=== PATIENT | male | born 1945 | race Caucasian/White ===

== ENCOUNTER 2022-01-20 12:27 | Emergency (ER) | payer MEDICARE, BC, SELFPAY ==
--- NOTE | ~2022-01-20 | CT_ITS ---
EXAMINATION: CT cervical spine wo con DATE: 01/20/2022 12:55 INDICATION: Fall. Head and neck injury. TECHNIQUE: Computed tomography (CT) of the cervical spine was performed without intravenous contrast. Automated exposure control and iterative reconstruction technique were employed. Exam dose: 463.18 mGy-cm total exam DLP. COMPARISON: 03/11/2019 CT cervical spine FINDINGS: C1 and C2 are normally aligned and the odontoid process is intact. Moderate degenerative disc disease at C2-3. Severe degenerative disc disease and slight retrolisthesis at C3-4. Status post anterior cervical spine surgical fusion at C4-C7. Severe degenerative disc disease at C7-T1 No fracture or dislocation or locked facet or prevertebral soft tissue swelling. IMPRESSION: No fracture or dislocation or locked facet Status post anterior cervical spine surgical fusion at C4-C7 Severe degenerative disc disease at the interspaces above and below the fusion at C3-4 and CC 71 Reviewed, dictated and finalized at [facility]. Reviewed, dictated and finalized at [facility].
--- NOTE | ~2022-01-20 | CT_ITS ---
EXAMINATION: CT brain wo con DATE: 01/20/2022 12:55 INDICATION: Head injury from fall TECHNIQUE: Computed tomography (CT) of the head was performed without intravenous contrast. The mA wa s adjusted according to patient size. Iterative reconstruction technique was employed. Exam dose: 60 5.33 mGy-cm total exam DLP. COMPARISON: 03/11/2019 CT brain FINDINGS: Bilateral vertebral artery and carotid siphon and supraclinoid internal carotid artery calc ifications. There is nonspecific diminished attenuation of the cerebral white matter, likely due to chronic small vessel ischemic changes. 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 No intracranial mass lesion or hemorrhage or cerebrovascular accident, midline shift or mass effect or subdural or epidural hematoma is noted oth erwise. No fracture or bone destruction of the cranial vault. Included paranasal sinuses and mastoid air cell s are normally developed and aerated. IMPRESSION: Cerebral atherosclerosis and chronic small vessel ischemic changes of the cerebral white matter Small chronic right cerebellar hemispheric infarct Reviewed, dictated and finalized at [facility]. Reviewed, dictated and finalized at [facility].
[2022-01-20 12:29] VITALS: BP 171/88; PULSE 62; RESP 15; TEMP 36.4; O2SAT 100
--- NOTE | 2022-01-20 12:50 | ED.WOUNDLAC ---
HPI - Wound/Laceration General Chief Complaint: Wound/Laceration Stated Complaint: fall, head injury Time Seen by Provider: 01/20/22 12:33 History of Present Illness HPI narrative: 76-year-old male presents the emergency room for evaluation of a head injury sustained from a mechanical fall from ground-level. Patient states that he tripped and fell landed backwards struck his head on the side of a counter. Bleeding was controlled at the time of the injury. Patient is on blood thinners. Denies any LOC or altered mental status. Denies visual hearing changes. Denies headache Related Data Home Medications Medication Instructions Recorded Confirmed aspirin 81 mg tablet,delayed 81 mg PO DAILY 07/13/19 07/07/21 release (Aspir-Low) cholestyramine (with sugar) 4 gram 4 gm PO DAILY 07/13/19 07/07/21 oral powder dabigatran etexilate 150 mg 150 mg PO BID 07/13/19 07/07/21 capsule (Pradaxa) diphenhydramine HCl 25 mg capsule 25 mg PO QHS PRN Insomnia 07/13/19 07/07/21 (Benadryl) docusate sodium 100 mg capsule 100 mg PO HS 07/13/19 07/07/21 finasteride 5 mg tablet 5 mg PO QPM 07/13/19 07/07/21 insulin glargine 100 unit/mL (3 55 unit subcut DAILY 07/13/19 07/07/21 mL) subcutaneous pen (Lantus Solostar U-100 Insulin) omega-3 fatty acids 1,000 mg 1,000 mg PO DAILY 07/13/19 07/07/21 capsule (Fish Oil Concentrate) atorvastatin 40 mg tablet 20 mg PO DAILY 07/16/19 07/07/21 cholecalciferol (vitamin D3) 50 2,000 unit PO DAILY 07/16/19 07/07/21 mcg (2,000 unit) capsule duloxetine 30 mg capsule,delayed 30 mg PO BID 07/16/19 07/07/21 release levothyroxine 175 mcg tablet 150 mcg PO DAILY 07/16/19 07/07/21 (Synthroid) losartan 25 mg tablet 25 mg PO DAILY 07/16/19 07/07/21 carboxymethylcellulose sodium 0.5 1 drp EACH EYE BID 09/15/20 07/07/21 % eye drops (Refresh Tears) alogliptin 6.25 mg tablet 6.25 mg PO QPM 01/20/22 empagliflozin 25 mg tablet 25 mg PO DAILY 01/20/22 Allergies Allergy/AdvReac Type Severity Reaction Status Date / Time lisinopril Allergy Mild Unknown Verified 01/20/22 12:36 milk Allergy Unknown Unknown Verified 01/20/22 12:36 some type of prostate med Allergy Severe itching,swelling Uncoded 07/07/21 09:40 NOT finasteride in mouth Review of Systems Review of Systems: CONSTITUTIONAL: Denies fever, chills, or sweats. EYES: Denies visual changes, redness, or discharge. ENT: Denies rhinorrhea, congestion, sore throat, or otalgia. CARDIOVASCULAR: Denies chest pain, palpitations, or edema. RESPIRATORY: Denies cough or dyspnea. GASTROINTESTINAL: Denies abdominal pain, nausea, vomiting, or diarrhea. GENITOURINARY: Denies dysuria or hematuria. SKIN: Reports laceration to scalp MUSCULOSKELETAL: Denies back pain, joint pain, or myalgia. NEUROLOGIC: Denies headache, numbness, dizziness, or weakness. PSYCHIATRIC: Denies anxiety or depression. PMFSH Past Medical History Medical History ASHD (arteriosclerotic heart disease) Chronic anticoagulation Essential hypertension Insulin dependent diabetes mellitus Obesity, unspecified Surgical History Surgical History History of laparoscopic cholecystectomy Family History Family History Father Family history of cardiovascular disease Cerebrovascular accident Mother Family history of dementia Sibling Family history of malignant neoplasm of thyroid, Onset Age: 68 Other Diabetes mellitus Family history of malignant neoplasm Hypertension Social History Social History Smoking status: Never smoker Alcohol intake: current Exam Narrative: GENERAL: Well-appearing, well-nourished, no physical limitations, and in no acute distress. HEAD: Normocephalic, laceration to occipital scalp EYES: Conjunctivae normal, PERRL
[2022-01-20] MEDS: TETANUS,DIPHTHERIA,AC PERTUSSIS ADULT (0.5 ML) BOOSTRIX IM (14:01)
== END 2022-01-20 13:55 | disposition home or self-care (01) ==
PROVIDERS: Emergency Provider Nurse Practitioner Family
DX: S01.01XA Laceration without foreign body of scalp, initial encounter (principal); I10 Essential (primary) hypertension; I25.10 Atherosclerotic heart disease of native coronary artery without angina pectoris; E11.9 Type 2 diabetes mellitus without complications; Z79.4 Long term (current) use of insulin; Z79.01 Long term (current) use of anticoagulants; Z23 Encounter for immunization; W01.198A Fall on same level from slipping, tripping and stumbling with subsequent striking against other object, initial encounter
CPT/HCPCS: 12001; 70450; 72125; 90471; 90715; 99284

== ENCOUNTER 2024-11-27 08:36 | Outpatient (CLI) | payer MEDICARE, SELFPAY ==
--- OUTSIDE RECORDS SUMMARY | 2024-11-27 08:41 | XMS_ITS | Clinical Summary ---
Author Organization [facility] [address] [facility] [address] Address [address] [place] [address] Care Team Providers Care Substation Inspector Name Role Phone Denise Segura NP Primary Care Provider [phone]- [phone] Allergies Active Allergy Reactions Criticality Noted Date Comments Blueberry Unknown Lisinopril Medium Milk Itching Low Terazosin Headache Low 05/08/2008 Medications dabigatran (PRADAXA) 150 mg capsule take 1 capsule (150MG) by oral route 2 times every day 180 3 2 Active cholecalciferol (VITAMIN D-3) 2,000 unit capsule take 1 by oral route every day 0 2 Active omega-3 fatty acids-fish oil (OMEGA 3 FISH OIL) 684-1,200 mg capsule,delayed release(DR/EC) take 1 by Oral route 2 times every day 0 2 Active aspirin (ASPIRIN LOW DOSE) 81 mg tablet take 1 Tablet (81MG) by oral route every day 0 2 Active docusate sodium (COLACE) 100 mg capsule take 1 capsule (100MG) by oral route every day at bedtime as needed 0 3 Active finasteride (PROSCAR) 5 mg tablet take 1 tablet (5MG) by oral route every day 0 3 Active levothyroxine (SYNTHROID, LEVOTHROID) 175 mcg tablet take 1 tablet by oral route every day 0 0 6 Active Additional Information Patient taking differently: 200 mcg, Reported on 11/13/2024 insulin glargine (LANTUS) 100 unit/mL (3 mL) insulin pen Inject 55 Units under the skin daily Active atorvastatin (LIPITOR) 40 mg tablet Take 0.5 tablets (20 mg total) by mouth daily. 0 8 Active cholestyramine- aspartame (cholestyramine light) 4 gram powder in packet Take 1 packet by mouth daily. 0 8 Active alogliptin 12.5 mg tablet Take 1 tablet by mouth daily. Active DULoxetine DR (CYMBALTA) 30 mg capsule Take 1 capsule (30 mg total) by mouth 2 (two) times a day Active acetaminophen ER (TYLENOL) 650 mg 8 hr tablet Take 500 mg by mouth as needed Active diphenhydrAMINE (BENADRYL) 25 mg capsule Take 1 tablet/capsule (25 mg total) by mouth as needed Active L gasseri/B bifidum/B longum ([facility] [employer] [facility] ORAL) Take by mouth Active vit C/E/Zn/coppr/kem tein/zeaxan (PRESERVISION AREDS-2 ORAL) Take by mouth Ac tive carboxymethylce llulose (REFRESH LIQUIGEL) 1 % ophthalmic liquid gel drops Administer 1 drop into both eyes as needed Active simethicone (MYLICON) 80 mg chewable tablet Take 2 tablets (160 mg total) by mouth as needed Active losartan (COZAAR) 50 mg tablet Take 1 tablet (50 mg total) by mouth daily 90 tablet 3 4 Active amLODIPine (NORVASC) 10 mg tablet Take 1 tablet (10 mg total) by mouth daily 4 Active GLIPIZIDE ORAL Take 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 4 Active INSULIN ASPART U-100 SUBQ Inject 55 Units under the skin Active semaglutide (OZEMPIC) 1 mg/dose (4 mg/3 mL) pen injector injection Inject under the skin 5 Active fish oil-dha-epa 1,200-144-216 mg capsule Take by mouth Activ e acidophilus-pec tin, citrus 100 million cell-10 mg capsule Take by mouth Activ e metFORMIN XR (GLUCOPHAGE XR) 500 mg 24 hr tablet Take 2 tablets (1,000 mg total) by mouth 5 Active Active Problems Problem Noted Date Diagnosed Date Severe obesity 11/13/2024 Chronic atrial fibrillation 03/22/2017 Coronary artery disease invo [place]ving [place] coronary artery of [place] heart without angina pectoris 03/22/2017 S/P CABG (coronary artery bypass graft) 03/22/20 17 Encounters Date Type Department Care Team Description 11/13/2024 10:00 AM CDT Office Visit [facility] Cardiology [address] [place] [address] Lamont Luna MD Coronary artery disease involving [place] coronary artery of [place] heart without angina pectoris (Primary Dx); S/P CABG (coronary artery bypass graft); Chronic atrial fibrillation (HCC); Severe obesity (HCC) from Last 3 Months Medical History Medical History Date Comments Hx Other Medical Diabetes Type I I Hypertension Hypertension Hypothyroidism Hypothyroidism Family History Medical History Relation Name Comments Cardiomyopathy Father 2 Cardiomyopath y; Relation Name Status Comments Father 1 Alive Father 2 Social History Tobacco Use Types Packs/Day Years Used Date Smoking Tobacco: Never Smokeless Tobacco: Never Tobacco Cessation:Counseling Given: Not Answered Alcohol Use Standard Drinks/Week Comments Yes 1 (1 standard drink = 0.6 oz pur e alcohol) Sex and Gender Information Value Date Recorded Sex Assigned at Not on file 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 Gender Identity Not on file Sexual Orientation Not on file Obstetrics History Last Filed Vital Signs Vital Sign Reading Time Taken Comments Blood Pressure 130/52 11/13/2024 10:07 AM CDT Pulse 70 11/13/2024 10:07 AM CDT Temperature - - Respiratory Rate 12 01/17/2020 10:3 7 AM CDT Oxygen Saturation 91% 11/13/2024 10: 07 AM CDT Inhaled Oxygen Concentration - - Weight 125.9 kg (277 lb 9.6 oz) 025 10:07 AM CDT Height 185.4 cm (6' 1 ) 11/13/2024 10:0 7 AM CDT Body Mass Index 36.62 11/13/2024 10:07 AM CDT Plan of Treatment Health Maintenance Due Date Last Done Comments Depression Screening 1944 Fall Risk Assessment 1945 Hepatitis B Screening 1962 Well Visit 65+ 2009 DTaP/Tdap/Td Vaccine (5 - Td or Tdap) 01/21/2032 01/20/2022, 03/11/2019, 11/20/2013, Additional history exists Pneumococcal vaccine 65+ Completed 015, 11/24/2013, 02/20/2004 Zoster Vaccine Completed 08/20/2019, 01/17, 02/04/2009 Influenza Vaccine Completed 03/28/2024, , 04/17/2021, Additional history exists Insurance [facility] MEDICARE ADVANTAGE Care Teams Substation Inspector Relationship Specialty Start Date End Date Denise Segura NP [address] [place] [id number] PCP - General Nurse Practitioner 05/10/24
--- OUTSIDE RECORDS SUMMARY | 2024-11-27 08:41 | XMS_ITS | Referral Summary ---
Author Organization [facility] [address] [address] Address [address] [facility] [address] [place] [address] Care Team Providers Care Work Environment Safety Inspector Name Role Phone Denise Segura NP Primary Care Provider +1- [phone] Encounters Date Type Department Care Team Description 11/13/2024 10:00 AM CDT Office Visit [facility] Cardiology [address] [facility] [address] [place] [address] Lamont Luna MD Coronary artery disease involving [place] coronary artery of [place] heart without angina pectoris (Primary Dx); S/P CABG (coronary artery bypass graft); Chronic atrial fibrillation (HCC); Severe obesity (HCC) from Last 3 Months Allergies Active Allergy Reactions Criticality Noted Date [...] as needed Active L gasseri/B bifidum/B longum ([facility] ORAL) Take by mouth Active vit [...] GLIPIZIDE ORAL Take 10 mg by mouth lumber tripper before breakfast 4 Active INSULIN ASPART U-100 [...] fibrillation 03/22/2017 Coronary artery disease invo lving [place] coronary artery of [place] heart without angina pectoris 03/22/2017 S/P CABG (coronary artery bypass graft) 03/22/20 17 Social History Tobacco Use Types Packs/Day Years Used Date Smoking Tobacco: Never Smokeless Tobacco: Never Tobacco Cessation:Counseling Given: Not Answered Alcohol Use Standard Drinks/Week Comments Yes 1 (1 standard drink = 0.6 oz pur e alcohol) Sex and Gender Information Value Date Recorded Sex Assigned at Not on file 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
--- OUTSIDE RECORDS SUMMARY | 2024-11-27 08:41 | XMS_ITS | CONTINUITY OF CARE DOCUMENT ---
Author Name edgardo reynoso Address Unknown Organization [facility] Address [address] [place] [address] [address] [place] [address] Phone [phone] Care Team Providers Care Automatic Operator Name Role Phone edgardo reynoso Unavailable Unavailable INSURANCE PROVIDERS Payer name Policy type / Coverage type Advance red alliance party ID [employer] Other [id number]
--- NOTE | 2024-12-07 22:11 | P.SLEEP_ITS ---
Sleep Study Date of Study: 11/27/24 Ordering Provider: ADRIANNE Montano Interpreting Physician: aKti Vásquez MD Sleep Study Type: CPAP Titration Height: 1.85 m Weight: 120.202 kg Body Mass Index: 34.9 Neck Circumference (inches): 18 [place]: 10 Reason for Sleep Study Known obstructive sleep apnea, increased AHI with more central events; he presents for a new titration to see if his needs have changed. Sleep History Gregg Bhatti is an 79-year-old man with obstructive sleep apnea on CPAP for over 25 years. His current pressure CPAP 16 with 1 cm of EPR. His most recent apnea-hypopnea index on his compliance download was 47, this is significantly elevated, ideally AHI should be between 0 and 5, or up to 10 if the condition being treated is central sleep apnea. He rarely awakens from sleep feeling short of breath. He never wakes at night with heartburn, belching or coughing.??Does not mention whether or not he snores. He rarely has trouble sleeping when he has a cold. He never wakes up gasping for breath during the night. He occasionally has breathing problems at night. He never sweats excessively at night. He never notices his heart pounding or beating irregularly during the night. He frequently falls asleep during the day. He occasionally falls asleep involuntarily. He never feels afraid of going to sleep. He rarely has nightmares. He occasionally recalls his dreams. He rarely has thoughts racing through his mind. He never feels sad or depressed. He never feels anxiety. He rarely notices parts of his body jerk. He occasionally feels crawling or aching feelings in his legs. He occasionally feels leg pain at night. He never has morning jaw pain, never grinds his teeth at night. He constantly feels bothered by pain during the day, rarely awakened by pain during the night. He occasionally wakes feeling sore or achy. He constantly awakens with pain in his neck, spine, or joints. Normal bedtime is midnight, falling asleep within 5 minutes were, waking once at night to urinate, returns to sleep until waking at 7:00 a.m.. He keeps the same schedule on weekends. He estimates getting between 6 and 7 hours of sleep at night. He takes a nap 2 hours after waking in the morning but does not take a nap later in the day. He feels better in the evening compared to other times of day. Habits:??Tobacco: none Caffeine: 3-5 servings daily. Alcohol: Occasional drink when he is unable to get to sleep Recreational substances: none [facility] Past Medical History Medical History (Updated 12/11/24 @ 10:47 by Kati Vásquez MD) Hypothyroidism (acquired) Chronic a-fib Obstructive sleep apnea (adult) (pediatric) ASHD (arteriosclerotic heart disease) Chronic anticoagulation Essential hypertension Insulin dependent diabetes mellitus Obesity, unspecified Surgical History Surgical History History of laparoscopic cholecystectomy Family History Family History Father Family history of cardiovascular disease Cerebrovascular accident Mother Family history of dementia Sibling Family history of malignant neoplasm of thyroid, Onset Age: 68 Other Diabetes mellitus Family history of malignant neoplasm Hypertension Social History Social History Smoking status: Never smoker Alcohol intake: current Medications Home Medications ?Medication ?Instructions ?Recorded ?Confirmed ?Type aspirin 81 mg tablet,delayed 81 mg PO DAILY 07/13/19 11/19/24 History release (Aspir-Low) cholestyramine (with sugar) 4 gram 4 gm PO DAILY 07/13/19 11/19/24 History oral powder dabigatran etexilate 150 mg 150 mg PO BID 07/13/19 11/19/24 History capsule (Pradaxa) diphenhydramine HCl 25 mg capsule 25 mg PO QHS PRN Insomnia 07/13/19 11/19/24 History (Benadryl) docusate sodium 100 mg capsule 100 mg PO HS 07/13/19 11/19/24 History finasteride 5 mg tablet 5 mg PO QPM 07/13/19 11/19/24 History insulin glargine 100 unit/mL (3 55 unit subcut DAILY 07/13/19 11/19/24 History mL) subcutaneous pen (Lantus Solostar U-100 Insulin) omega-3 fatty acids 1,000 mg 1,000 mg PO DAILY 07/13/19 11/19/24 History capsule (Fish Oil Concentrate) atorvastatin 40 mg tablet 20 mg PO DAILY 07/16/19 11/19/24 History cholecalciferol (vitamin D3) 50 2,000 unit PO DAILY 07/16/19 11/19/24 History mcg (2,000 unit) capsule duloxetine 30 mg capsule,delayed 30 mg PO BID 07/16/19 11/19/24 History release losartan 25 mg tablet 25 mg PO DAILY 07/16/19 11/19/24 History carboxymethylcellulose sodium 0.5 1 drp EACH EYE BID 09/15/20 11/19/24 History % eye drops (Refresh Tears) empagliflozin 25 mg tablet 25 mg PO DAILY 01/20/22 11/19/24 History vitamins A,C,S-vywb-vjulqn 4,296 1 cap PO BID 07/04/23 11/19/24 History mcg-226 mg-90 mg capsule (PreserVision AREDS) amlodipine 2.5 mg tablet 2.5 mg PO DAILY 07/09/24 11/19/24 History glipizide 2.5 mg tablet 2.5 mg PO DAILY 07/09/24 11/19/24 History eszopiclone 2 mg tablet 2 mg PO ONCE #1 tablet 11/19/24 11/19/24 Rx levothyroxine 175 mcg tablet 200 mcg PO DAILY 11/19/24 11/19/24 History (Synthroid) Sleep Procedure A full night polysomnogram using the [employer] SleepVisys multi-channel system recorded the standard physiologic parameters including EEG, EOG, submentalis EMG, anterior tibialis EMG, EKG, body position, nasal and oral airflow using PAP device flow signal. Respiratory parameters of chest and abdominal movements were recorded with Respiratory Inductance Plethysmography belts. Oxygen saturation was recorded by pulse oximetry. Video monitoring was also performed. Sleep stages, periodic limb movements, and EEG arousals were scored in 30 second epochs according to the criteria of the AASM Scoring Manual. The Apnea-Hypopnea Index was calculated using CMS guidelines for definition of hypopnea with 4% O2 desaturations while scoring respiratory events. The patient self-administered Lunesta 2 mg at the start of the study. At the start of the test, while he was still awake and his saturation was normal, he had 11 beats of SVT with aberrancy then returned to baseline. He was titrated using a medium BioPharmX AirTouch F20 ffm with and heated humidity, initial pressure CPAP 5 cm, titrated to 6 cm, 8 cm, 10 cm, 12 cm, 14 cm, 16 cm, 18 cm, BiPAP 20/16, 22/16, 24/17, 25/17 and the final BiPAP pressure was 26/18. There were no acceptable pressures. The apnea-hypopnea index was elevated throughout the night, the lowest was 46 a highest was 90. He had centrals which were present beginning at CPAP 8 and persisting throughout the night. This was a technically difficult study for the tech due to the severity of disease. The patient had many central apneas and absence of REM. Sleep Architecture The total recording time was 412.0 minutes. The total sleep time was 281.5 minutes. Sleep latency was 26.9 minutes. There was no REM. Sleep efficiency was 68.3%. The patient had 48 awakenings for an awakening index of 10.2. Wake after Sleep Onset time was 103.5 minutes. The patient spent 67.0 minutes, 23.8% of total sleep time in Stage N1. The patient spent 214.5 minutes, 76.2% in Stage N2. The patient spent no time on Stage N3 or Stage REM. Respiratory Analysis The patient had 41 hypopneas, 60 obstructive apneas, 83 mixed apneas, and 85 central apneas for an overall Apnea Hypopnea Index of 57.1 events per hour. There was no REM. The NREM Apnea Hypopnea Index was 57.1. The patient had a Central Apnea Hypopnea Index of 18.1. There were no Respiratory Effort Related Arousals. The Respiratory Disturbance Index is 59.0 events per hour. There was no evidence of Case-Mederos Respirations. Arousals There were 224 total arousals for an arousal index of 47.7. There were 66 spontaneous arousals for an index of 14.1. There were 129 arousals due to respiratory events for an index of 27.5. There were 16 arousals due to periodic limb movements for an index of 3.4. There were 14 arousals due to isolated limb movements for an index of 3.0. Periodic Limb Movements There were 224 total arousals for an arousal index of 47.7. There were 66 spontaneous arousals for an index of 14.1. There were 129 arousals due to respiratory events for an index of 27.5. There were 16 arousals due to periodic limb movements for an index of 3.4. There were 14 arousals due to isolated limb movements for an index of 3.0. Oximetry Data The patient had an average oxygen saturation of 93.6% in sleep with a minimum oxygen saturation of 85% and a maximum oxygen saturation of 98%. The patient had 234 oxygen desaturations that were 4% or greater resulting in an Oxygen Desaturation Index of 49.9. The patient spent 16.9 minutes, 4.2% of total sleep time with an oxygen saturation below 88%. Snoring Profile Snoring was not reported. Cardiac Profile The EKG showed atrial fibrillation with an average pulse rate of 51.1 bpm with a minimum pulse rate of 40 bpm and a maximum pulse rate of 63 bpm. On epoch 19, while awake with normal saturation, he had 11 beats of SVT with aberrancy, return to atrial fibrillation. EEG Profile EEG was unremarkable, no evidence of seizures. Assessment and Plan Assessment and Plan (1) Obstructive sleep apnea (adult) (pediatric): Code(s): G47.33 - Obstructive sleep apnea (adult) (pediatric) Status: Acute Assessment and Plan: This full night CPAP/BPAP titration on November 27 does not show an adequate pressure. He has been on CPAP for 25 or more years, had increasing central apneas on his downloads prior to this titration. During this study he was studied on pressures between CPAP 5 cm to 18 cm and BiPAP pressures between 20/16 to 26/18. His apnea-hypopnea index was elevated consistently during the night between 40 to 90 events per hour with central apneas at all pressures. He is followed by Cardiology, needs to have his most recent echo reviewed to assure that his EF is greater than 45% so he can proceed with ASV titration. He had a short episode of supraventricular tachycardia with aberrant see on epic 19 before falling asleep. He has atrial fibrillation at baseline. (2) Mixed sleep apnea: Code(s): G47.39 - Other sleep apnea Status: Acute Assessment and Plan: The patient had an elevated central apnea index 18.1, overal AHI was 57.1. Many of these apneas were mixed apneas. He has atrial fibrillation, and may have decrased LVEF which is often seen with central apneas. His most recent echo needs to be reviewed. Central apneas can be seen in the setting of heart failure, stroke, alcohol and opioid use. Patient says that he may take a drink of alcohol if he can get to sleep. Please ask the paitent how much alcohol is being consumed, and recommend avoiding use as a sedative hypnotic. This may be contributing to his central apneas. Alcohol can feel like a sedative but when it wears off there could be rebound waking. This can disrupt sleep. Data The data obtained during this sleep study is adequate for interpretation. Certification This sleep study has been reviewed by a board certified sleep medicine phys marissa.
[2024-12-11 10:24] VITALS: BMI 34.9
== END 2024-11-28 06:50 | disposition home or self-care (01) ==
LOC: ANHCSM 08:37
PROVIDERS: Visit Provider Physician Assistant
DX: G47.33 Obstructive sleep apnea (adult) (pediatric) (principal); G47.39 Other sleep apnea
CPT/HCPCS: 95811

== ENCOUNTER 2025-02-05 08:19 | Outpatient (CLI) | payer MEDICARE, SELFPAY ==
--- OUTSIDE RECORDS SUMMARY | 2025-02-05 08:25 | XMS_ITS | Clinical Summary ---
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 4 Active INSULIN ASPART U-100 [...] fibrillation 03/22/2017 Coronary artery disease invo lving [place] coronary artery of [place] heart without angina pectoris 03/22/2017 S/P CABG (coronary artery bypass graft) 03/22/20 17 Encounters Date Type Department Care Team Description 12/18/2024 3:00 PM CDT Ancillary Procedure [facility] Cardiology [address] [place] [address] S/P CABG (coronary artery bypass graft); Chronic atrial fibrillation (HCC) 11/13/2024 10:00 AM CDT Office Visit [facility] Cardiology [address] [place] [address] Lamont Luna MD Coronary artery disease involving [place] coronary artery of [place] heart without angina pectoris (Primary Dx); S/P [...] on file Legal Sex Male 2:01 AM [employer] Gender Identity Not on file Sexual Orientation [...] 10:07 AM CDT Height 185.4 cm (6' 1) 11/13/2024 10:0 7 AM CDT Body Mass [...] Completed 03/28/2024, , 04/17/2021, Additional history exists Procedures Procedure Name Priority Date/Time Associated Diagnosis Comments TRANSTHORACIC ECHO (TTE) COMPLETE W DOPPLER/CF Routine 12/18/2024 2:42 PM CDT S/P CABG (coronary artery bypass graft) Chronic atrial fibrillation (HCC) from Last 3 Months Results * Transthoracic Echo (TTE) Complete W Doppler/CF (12/18/2024 2:42 PM CDT) Estimated EF 60 % CONS SCIMAGE EF Mod BP 58 % CONS SCIMAGE Anatomical Region Laterality Modality Ultrasound 12/18/2024 2:42 PM CDT Narrative 12/18/2024 3:[address] [facility] Cardiology [address] [facility] [address] [address] [address] [facility] [address] [place] [address], [place] [address] P:[phone] P:[phone] Echocardiographic Report Patient Name: GREGG BHATTI M : 1945 Study Date: 12/18/2024 2:42:54 PM Gender: M Tech: Location: [place] Ref Provider: LAMONT LUNA Height(Cm): 185 BSA: 2.54 Weight(Kg): 125.6 Heart Rate: 67 BP: 130 / 52 Quality: Good Order Provider: LAMONT LUNA PROCEDURES: Echocardiographic Report: Transthoracic echocardiogram with complete 2D, M-Mode, color Doppler examination and Definity contrast. INDICATIONS: Z95.1 Presence of aortocoronary bypass graft and I48.20 Chronic atrial fibrillation, unspecified. MEASUREMENTS: 2D/MM Value Range Doppler Value Range EF Mod BP 58 % [ 52 - 72 ] HILARIO Vmax 2.52 cm2 [ 2.00 - 4.00 ] EF Teich MM 51 % [ 52 - 72 ] AV Mean PG 5 mmHg Estimated EF 60 % AV Peak Abdiaziz 1.50 m/s [ 1.00 - 1.70 ] LVIDd 2D 5.79 cm [ 4.20 - 5.80 ] AV Peak PG 9 mmHg LVIDd MM 6.34 cm [ 4.20 - 5.80 ] AV VTI 31.18 cm LVIDs 2D 4.27 cm [ 2.50 - 4.00 ] LVOT Diam 1.96 cm [ 1.70 - 2.10 ] LVIDs MM 4.64 cm [ 2.50 - 4.00 ] LVOT Peak Abdiaziz 1.09 m/s [ 0.70 - 1.10 ] LVPWd 2D 1.27 cm [ 0.60 - 1.00 ] LVOT VTI 22.73 cm LVPWd MM 1.23 cm [ 0.60 - 1.00 ] MV E Peak Abdiaziz 1.44 m/s [ 0.60 - 1.30 ] IVSd 2D 1.64 cm [ 0.60 - 1.00 ] MV A Peak Abdiaziz 0.24 m/s [ 1.00 - 1.20 ] IVSd MM 1.59 cm [ 0.60 - 1.00 ] MV Mean PG 2 mmHg [ 0 - 5 ] LA Dimension MM 6.86 cm [ 3.00 - 4.00 ] MV PHT 57 msec [ 20 - 100 ] AoR Diam MM 3.33 cm [ 3.10 - 3.70 ] MVA PHT 3.85 cm2 [ 2.00 - 4.00 ] LA Volume Index 59 cc/m2 [ 16 - 34 ] MV Decel Time 254 msec [ 104 - 258 ] PV Peak Abdiaziz 1.07 m/s [ 0.40 - 0.80 ] TR Peak Abdiaziz 3.05 m/s [ 1.00 - 2.80 ] TR Peak PG 37 mmHg RVSP 45.00 mmHg [ 10.00 - 36.00 ] Lateral E` 0.07 m/s [ 0.10 - 0.15 ] E` 0.05 m/s E/E` 20 2D/MM Value Range Doppler Value Range - FINDINGS: Interpretation Site: Exam was interpreted at [facility]. Left Ventricle: Normal left ventricular systolic function. No focal wall motion abnormalities. Definity contrast agent used to visually enhance endocardial wall motion and contractility. Lot Number: [id number]. Moderate concentric left ventricular hypertrophy. Mild enlargement of left ventricle cavity. Indeterminate diastolic function. Ejection fraction is measured at 58 %. Ejection Fraction is visually estimated to be 60 %. Right Ventricle: Normal right ventricular systolic function. Mild enlargement of right ventricle. Left Atrium: There is severe enlargement of left atrium. Right Atrium: There is mild enlargement of right atrium. Atrial Septum: Normal atrial septum. Mitral Valve: Moderate mitral annular calcification. Mild to moderate mitral valve regurgitation. There is no hemodynamically significant mitral stenosis by Doppler. Aortic Valve: No evidence of hemodynamically significant aortic stenosis by Doppler. Aortic cusps appear mildly calcified. Trileaflet aortic valve. Trace aortic valve regurgitation. Tricuspid Valve: Normal appearance of the tricuspid valve. Moderate pulmonary hypertension based on right ventricular systolic pressure. Estimated peak RVSP is 45 mmHg. Mild tricuspid regurgitation. Pulmonic Valve: Normal appearance of the pulmonic valve. No pulmonic stenosis. Moderate pulmonic regurgitation. Pericardium: Normal pericardium with no significant pericardial effusion. Aorta: There is mild atherosclerosis in the aortic root. IVC: Normal size and normal respiratory collapse consistent with normal right atrial pressure (<5 mmHg). CONCLUSIONS: Normal left ventricular systolic function. No focal wall motion abnormalities. Definity contrast agent used to visually enhance endocardial wall motion and contractility. Lot Number: [id number]. Moderate concentric left ventricular hypertrophy. Mild enlargement of left ventricle cavity. Indeterminate diastolic function. Ejection fraction is measured at 58 %. Ejection Fraction is visually estimated to be 60 %. Normal right ventricular systolic function. Mild enlargement of right ventricle. There is severe enlargement of left atrium. There is mild enlargement of right atrium. Moderate mitral annular calcification. Mild to moderate mitral valve regurgitation. Moderate pulmonary hypertension based on right ventricular systolic pressure. Estimated peak RVSP is 45 mmHg. Mild tricuspid regurgitation. Moderate pulmonic regurgitation. Atrial fibrillation. Electronically Signed By: Abdiel Ac MD 12/18/2024 3:59:08 PM CDT Procedure Note Abdiel Ac MD - 12/18/2024 [facility] Cardiology [address] [facility] [address] [address] [address] [facility] [address], [place] [address] P:[phone] P:[phone] Echocardiographic Report Patient Name: GREGG BHATTI M : 1945 Study Date: 12/18/2024 2:42:54 PM Gender: M Tech: Location: [facility] Provider: LAMONT LUNA Height(Cm): 185 BSA: 2.54 Weight(Kg): 125.6 Heart Rate: 67 BP: 130 / 52 Quality: Good Order Provider: LAMONT LUNA PROCEDURES: Echocardiographic Report: Transthoracic echocardiogram with complete 2D, M-Mode, color Dopplerexamination and Definity contrast. INDICATIONS: Z95.1 Presence of aortocoronary bypass graft and I48.20 Chronic atrialfibrillation, unspecified. MEASUREMENTS: 2D/MM Value Range Doppler ValueRange EF Mod BP 58 % [ 52 - 72 ] HILARIO Vmax 2.52cm2 [ 2.00 - 4.00 ] EF Teich MM 51 % [ 52 - 72 ] AV Mean PG 5mmHg Estimated EF 60 % AV Peak Abdiaziz 1.50m/s [ 1.00 - 1.70 ] LVIDd 2D 5.79 cm [ 4.20 - 5.80 ] AV Peak PG 9mmHg LVIDd MM 6.34 cm [ 4.20 - 5.80 ] AV VTI 31.18cm LVIDs 2D 4.27 cm [ 2.50 - 4.00 ] LVOT Diam 1.96 cm[ 1.70 - 2.10 ] LVIDs MM 4.64 cm [ 2.50 - 4.00 ] LVOT Peak Abdiaziz 1.09m/s [ 0.70 - 1.10 ] LVPWd 2D 1.27 cm [ 0.60 - 1.00 ] LVOT VTI 22.73cm LVPWd MM 1.23 cm [ 0.60 - 1.00 ] MV E Peak Abdiaziz 1.44m/s [ 0.60 - 1.30 ] IVSd 2D 1.64 cm [ 0.60 - 1.00 ] MV A Peak Abdiaziz 0.24m/s [ 1.00 - 1.20 ] IVSd MM 1.59 cm [ 0.60 - 1.00 ] MV Mean PG 2 mmHg[ 0 - 5 ] LA Dimension MM 6.86 cm [ 3.00 - 4.00 ] MV PHT 57 msec[ 20 - 100 ] AoR Diam MM 3.33 cm [ 3.10 - 3.70 ] MVA PHT 3.85cm2 [ 2.00 - 4.00 ] LA Volume Index 59 cc/m2 [ 16 - 34 ] MV Decel Time 254msec [ 104 - 258 ] PV Peak Abdiaziz 1.07 m/s [ 0.40 - 0.80 ] TR Peak Abdiaziz 3.05 m/s [ 1.00 - 2.80 ] TR Peak PG 37 mmHg RVSP 45.00 mmHg [ 10.00 - 36.00 ] Lateral E` 0.07 m/s [ 0.10 - 0.15 ] E` 0.05 m/s E/E` 20 2D/MM Value Range Doppler ValueRange - FINDINGS: Interpretation Site: Exam was interpreted at [facility]. Left Ventricle: Normal left ventricular systolic function. No focal wall motionabnormalities. Definity contrast agent used to visually enhance endocardial wall motion andcontractility. Lot Number: [id number]. Moderate concentric left ventricular hypertrophy. Mildenlargement of left ventricle cavity. Indeterminate diastolic function. Ejection fraction ismeasured at 58 %. Ejection Fraction is visually estimated to be 60 %. Right Ventricle: Normal right ventricular systolic function. Mild enlargement of rightventricle. Left Atrium: There is severe enlargement of left atrium. Right Atrium: There is mild enlargement of right atrium. Atrial Septum: Normal atrial septum. Mitral Valve: Moderate mitral annular calcification. Mild to moderate mitral valveregurgitation. There is no hemodynamically significant mitral stenosis by Doppler. Aortic Valve: No evidence of hemodynamically significant aortic stenosis by Doppler.Aortic cusps appear mildly calcified. Trileaflet aortic valve. Trace aortic valveregurgitation. Tricuspid Valve: Normal appearance of the tricuspid valve. Moderate pulmonary hypertensionbased on right ventricular systolic pressure. Estimated peak RVSP is 45 mmHg. Mildtricuspid regurgitation. Pulmonic Valve: Normal appearance of the pulmonic valve. No pulmonic stenosis. Moderatepulmonic regurgitation. Pericardium: Normal pericardium with no significant pericardial effusion. Aorta: There is mild atherosclerosis in the aortic root. IVC: Normal size and normal respiratory collapse consistent with normal rightatrial pressure (<5 mmHg). CONCLUSIONS: Normal left ventricular systolic function. No focal wall motionabnormalities. Definity contrast agent used to visually enhance endocardial wall motion andcontractility. Lot Number: [id number]. Moderate concentric left ventricular hypertrophy. Mildenlargement of left ventricle cavity. Indeterminate diastolic function. Ejection fraction ismeasured at 58 %. Ejection Fraction is visually estimated to be 60 %. Normal right ventricular systolic function. Mild enlargement of rightventricle. There is severe enlargement of left atrium. There is mild enlargement of right atrium. Moderate mitral annular calcification. Mild to moderate mitral valveregurgitation. Moderate pulmonary hypertension based on right ventricular systolicpressure. Estimated peak RVSP is 45 mmHg. Mild tricuspid regurgitation. Moderate pulmonic regurgitation. Atrial fibrillation. Electronically Signed By: Abdiel cA MD 12/18/2024 3:59:08 PM CDT us Lamont Luna MD CV ECHO PROCEDURES Final Result from Last 3 Months Insurance [employer] Care Teams Pinion Polisher Relationship Specialty Start Date End Date Denise Segura NP [address] [place] [id number] PCP - General Nurse Practitioner 05/10/24
--- OUTSIDE RECORDS SUMMARY | 2025-02-05 08:25 | XMS_ITS | Referral Summary ---
Author Organization [facility] [place] [address] [place] [address] Address [address] [facility] [address] [place] [address] Care Team Providers Care Delivery Motorcycle Driver Name Role Phone Colton Denise Conte NP Primary Care Provider [phone] Encounters Date Type Department Care Team Description 12/18/2024 3:00 PM CDT Ancillary Procedure [facility] Cardiology [address] [place] [address] [address] [place] [address] S/P CABG (coronary artery bypass graft); Chronic atrial fibrillation (HCC) 11/13/2024 10:00 AM CDT Office Visit 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 Cardiology [address] [facility] [address], [place] [address] [address] [facility] [address], [place] [address] P:[phone] P:[phone] Echocardiographic Report Patient Name: GREGG BHATTI M : 1945 Study Date: 12/18/2024 2:42:54 PM Gender: M Tech: Location: [facility] Provider: LAMONT LUNA Height(Cm): 185 BSA: [...] [ 104 - 258 ] PV Peak Abdaiziz 1.07 m/s [ 0.40 - 0.80 ] TR Peak Abdiaziz 3.05 m/s [ 1.00 - 2.80 ] TR Peak PG 37 mmHg RVSP 45.00 mmHg [ 10.00 - 36.00 ] Lateral E` 0.07 m/s [ 0.10 - 0.15 ] E` 0.05 m/s E/E` 20 2D/MM Value Range Doppler Value Range - FINDINGS: Interpretation Site: Exam was interpreted at [facility]. Left Ventricle: Normal left ventricular systolic function. [...] Note Abdiel Ac MD - 12/18/2024 [facility] Cardiology [address] [facility] [address], [place] [address] [address] [facility] [address], [place] [address] P:[phone] P:[phone] Echocardiographic Report Patient Name: GREGG BHATTI M : 1945 Study Date: 12/18/2024 2:42:54 PM Gender: M Tech: Location: [facility] Provider: LAMONT LUNA Height(Cm): 185 BSA: [...] FINDINGS: Interpretation Site: Exam was interpreted at [facility]. Left Ventricle: Normal left ventricular systolic function. [...] Abdiel Ac MD 12/18/2024 3:59:08 PM CDT Lamont Luna MD CV ECHO PROCEDURES Final Result from Last 3 Months Insurance [facility] MEDICARE ADVANTAGE [facility] MEDICARE ADVANTAGE Care Teams Delivery Motorcycle Driver Relationship Specialty Start Date End Date Denise Segura NP [address] [place] [id number] PCP - General Nurse Practitioner 05/10/24
[2025-02-24 16:12] VITALS: BMI 34.9
--- NOTE | 2025-02-24 16:12 | P.SLEEP_ITS ---
Sleep Study Date of Study: 02/05/25 Ordering Provider: ADRIANNE Montano Interpreting Physician: Karon Serrano DO Sleep Study Type: ASV Height: 1.85 m Weight: 120.202 kg Body Mass Index: 34.9 Neck Circumference (inches): 18 [place]: 10 Reason for Sleep Study Known obstructive sleep apnea, increased AHI with more central events; he presents for a new titration to see if his needs have changed. Sleep History Gregg Bhatti is an 79-year-old man with obstructive sleep apnea on CPAP for over 25 years. His current pressure CPAP 16 with 1 cm of EPR. His most recent apnea-hypopnea index on his compliance download was 47, this is significantly elevated, ideally AHI should be between 0 and 5, or up to 10 if the condition being treated is central sleep apnea. He rarely awakens from sleep feeling short of breath. He never wakes at night with heartburn, belching or coughing.??Does not mention whether or not he snores. He rarely has trouble sleeping when he has a cold. He never wakes up gasping for breath during the night. He occasionally has breathing problems at night. He never sweats excessively at night. He never notices his heart pounding or beating irregularly during the night. He frequently falls asleep during the day. He occasionally falls asleep involuntarily. He never feels afraid of going to sleep. He rarely has nightmares. He occasionally recalls his dreams. He rarely has thoughts ra cing through his mind. He never feels sad or depressed. He never feels anxiety. He rarely notices parts of his body jerk. He occasionally feels crawling or aching feelings in his legs. He occasionally feels leg pain at night. He never has morning jaw pain, never grinds his teeth at night. He constantly feels bothered by pain during the day, rarely awakened by pain during the night. He occasionally wakes feeling sore or achy. He constantly awakens with pain in his neck, spine, or joints. Normal bedtime is midnight, falling asleep within 5 minutes were, waking once at night to urinate, returns to sleep until waking at 7:00 a.m.. He keeps the same schedule on weekends. He estimates getting between 6 and 7 hours of sleep at night. He takes a nap 2 hours after waking in the morning but does not take a nap later in the day. He feels better in the evening compared to other times of day. Habits:??Tobacco: none Caffeine: 3-5 servings daily. Alcohol: Occ asional drink when he is unable to get to sleep Recreational substances: none [facility] Past Medical History Medical History Hypothyroidism (acquired) Chronic a-fib Obstructive sleep apnea (adult) (pediatric) ASHD (arteriosclerotic heart disease) Chronic anticoagulation Essential hypertension Insulin dependent diabetes mellitus Obesity, unspecified Surgical History Surgical History History of laparoscopic cholecystectomy Family History Family History Father Family history of cardiovascular disease Cerebrovascular accident Mother Family history of dementia Sibling Family history of malignant neoplasm of thyroid, Onset Age: 68 Other Diabetes mellitus Family history of malignant neoplasm Hypertension Social History Social History Smoking status: Never smoker Alcohol intake: current Medications Home Medications ?Medication ?Instructions ?Recorded ?Confirmed ?Type aspirin 81 mg tablet,delayed 81 mg PO DAILY 07/13/19 11/19/24 History release (Aspir-Low) cholestyramine (with sugar) 4 gram 4 gm PO DAILY 07/13/19 11/19/24 History oral powder dabigatran etexilate 150 mg 150 mg PO BID 07/13/19 11/19/24 History capsule (Pradaxa) diphenhydramine HCl 25 mg capsule 25 mg PO QHS PRN Insomnia 07/13/19 11/19/24 History (Benadryl) docusate sodium 100 mg capsule 100 mg PO HS 07/13/19 11/19/24 History finasteride 5 mg tablet 5 mg PO QPM 07/13/19 11/19/24 History insulin glargine 100 unit/mL (3 55 unit subcut DAILY 07/13/19 11/19/24 History mL) subcutaneous pen (Lantus Solostar U-100 Insulin) omega-3 fatty acids 1,000 mg 1,000 mg PO DAILY 07/13/19 11/19/24 History capsule (Fish Oil Concentrate) atorvastatin 40 mg tablet 20 mg PO DAILY 07/16/19 11/19/24 History cholecalciferol (vitamin D3) 50 2,000 unit PO DAILY 07/16/19 11/19/24 History mcg (2,000 unit) capsule duloxetine 30 mg capsule,delayed 30 mg PO BID 07/16/19 11/19/24 History release losartan 25 mg tablet 25 mg PO DAILY 07/16/19 11/19/24 History carboxymethylcellulose sodium 0.5 1 drp EACH EYE BID 09/15/20 11/19/24 History % eye drops (Refresh Tears) empagliflozin 25 mg tablet 25 mg PO DAILY 01/20/22 11/19/24 History vitamins A,C,R-rvdj-jvugfj 4,296 1 cap PO BID 07/04/23 11/19/24 History mcg-226 mg-90 mg capsule (PreserVision AREDS) amlodipine 2.5 mg tablet 2.5 mg PO DAILY 07/09/24 11/19/24 History glipizide 2.5 mg tablet 2.5 mg PO DAILY 07/09/24 11/19/24 History levothyroxine 175 mcg tablet 200 mcg PO DAILY 11/19/24 11/19/24 History (Synthroid) eszopiclone 2 mg tablet 2 mg PO ONCE #1 tablet 12/11/24 Rx Sleep Procedure A full night ASV Titration using the [employer] Local multi-channel system recorded the standard physiologic parameters including EEG, EOG, submentalis EMG, anterior tibialis EMG, EKG, body position, nasal and oral airflow using nasal pressure sensor and thermistor.? Respiratory parameters of chest and abdominal movements were recorded with Respiratory Inductance Plethysmography belts. Oxygen saturation was recorded by pulse oximetry. Video monitoring was also performed. Sleep stages, periodic limb movements, and EEG arousals were scored in 30 second epochs according to the criteria of the AASM Scoring Manual. The Apnea-Hypopnea Index was calculated using CMS guidelines for definition of hypopnea with 4% O2 desaturations while scoring respiratory events. Sleep Architecture The total recording time was 437.6 minutes.? The total sleep time was 312.5 minutes. Sleep latency was 12.8 minutes. REM latency was 396.5 minutes. Sleep efficiency was 71.4%. The patient had 46 awakenings for an awakening index of 8.8. Wake after Sleep Onset time was 112.0 minutes. The patient spent 52.0 minutes, 16.6% of total sleep time in Stage N1. The patient spent 235.0 minutes, 75.2% in Stage N2. The patient spent 0.0 minutes, 0.0% in Stage N3. The patient spent 25.5 minutes, 8.2% in Stage REM. Respiratory Analysis The patient had 97 hypopneas, 6 obstructive apneas, 19 mixed apneas, and 9 central apneas for an overall Apnea Hypopnea Index of 25.2 events per hour. The REM Apnea Hypopnea Index was 35.3. The NREM Apnea Hypopnea Index was 24.3. The patient had a Central Apnea Hypopnea Index of 1.7. There was no evidence of Case-Mederos Respirations. The patient was started on ASV 7/3/15 (EPAP/minPS/maxPS) and was titrated to ASV 15/4/10 cm H2O due to hypopneas, central apneas and mixed apneas. The patient was able to fall asleep starting on ASV 7/3/15 cm H2O. The patient was able to achieve REM sleep starting on ASV 15/3/10 cm H2O. The patient was able to achieve a residual AHI less than 5 with NREM sleep on ASV 13/3/12 cm H2O. On ASV 13/3/12 cm H2O, the patient spent 140 minutes in NREM with 1 obstructive apnea and 4 hypopneas, resulting in an AHI of 2.1. The patient had a sleep efficiency of 65.1% on this pressure setting. Arousals There were 124 total arousals for an arousal index of 23.8. There were 68 spontaneous arousals for an index of 13.1. ?There were 29 arousals due to respiratory events for an index of 5.6. There were 24 arousals due to periodic limb movements for an index of 4.6.? There were 3 arousals due to isolated limb movements for an index of 0.6. Periodic Limb Movements The patient had 9 isolated limb movements with an index of 1.7. The patient had 375 periodic limb movements with index of 72.0, which is elevated (normal < 15). Patient had a total of 384 limb movements with a total limb movement index of 73.7. Oximetry Data The patient had an average oxygen saturation of 93.7% in sleep with a minimum oxygen saturation of 79.0% and a maximum oxygen saturation of 98.0%. The patient had 135 oxygen desaturations that were 4% or greater resulting in an Oxygen Desaturation Index of 25.9.? The patient spent 12.2 minutes, 2.8% of total sleep time with an oxygen saturation below 88%. Snoring Profile Mild snoring was present intermittently in the beginning of the study. The snoring resolved once the patient was titrated to EPAP 15 cm H2O, max PS 10 cm H2O and min PS 3 cm H2O. Cardiac Profile The EKG showed atrial fibrillation, frequent PVCs with intermittent bigeminy/trigeminy. The patient had an average pulse rate of 51.1 bpm with a minimum pulse rate of 35.0 bpm and a maximum pulse rate of 67.0 bpm. ? EEG Profile No signs of seizure activity seen. Assessment and Plan Assessment and Plan (1) Mixed sleep apnea: Code(s): G47.39 - Other sleep apnea Status: Acute Assessment and Plan: The patient was started on ASV 7/3/15 (EPAP/minPS/maxPS) and was titrated to ASV 15/4/10 cm H2O due to hypopneas, central apneas and mixed apneas. We were able to find a pressure setting that resolved the patient's sleep apnea. I recommend that the patient be prescribed ASV 13/3/12 cm H2O (EPAP/minPS/maxPS), size medium Resmed AirTouch F20 full face mask, CPAP filters/tubing and heated humidity. This should be used with all episodes of sleep.? Compliance should be reviewed within 31-90 days of starting therapy for usage greater than 4 hours per night greater than 70% of the nights. The patient should be asked about symptoms such as?excessive daytime sleepiness, quality of sleep, decreased nocturia, increased?mental functioning such as memory, mood, and concentration. Data The data obtained during this sleep study is adequate for interpretation. Certification This sleep study has been reviewed by a board certified sleep medicine physician.
== END 2025-02-06 06:52 | disposition home or self-care (01) ==
LOC: ANHCSM 08:20
PROVIDERS: Visit Provider Physician Assistant
DX: G47.33 Obstructive sleep apnea (adult) (pediatric) (principal); G47.39 Other sleep apnea
CPT/HCPCS: 95811